=== PATIENT | female | born 1965 ===

== ENCOUNTER 2016-06-21 17:41 | Emergency (ER) | payer MEDICAID, OTHER ==
[~2016-06-21] VITALS: Ht 170.2 cm; Wt 68.0 kg
--- NOTE | 2016-06-21 18:16 | NUR ---
Pt dc;ed home w/ aci , pt given script [email or web address] z pack .
[2016-06-21 18:19] VITALS: BP 136/80
== END 2016-06-21 18:20 | disposition home or self-care (01) ==
LOC: ER 17:43
DX: J40 Bronchitis, not specified as acute or chronic (principal); Z88.6 Allergy status to analgesic agent
CPT/HCPCS: 99283; A4663